=== PATIENT | female | born 1960 | race Caucasian/White ===

== ENCOUNTER → 2021-10-28 12:04 | Outpatient (CLI) | payer OTHER, SELFPAY ==
--- NOTE | 2021-10-28 | DI.MRI.S_ITS ---
PROCEDURE: MR HEAD/BRAIN WO/W CON INDICATIONS: Neoplasm of unspecified behavior of brain TECHNIQUE: Noncontrast axial T1 spin echo, axial T2 fast spin echo, sagittal and axial FLAIR, coronal T2 fast spin echo, axial gradient echo, axial diffusion and ADC through the brain. After the administration of contrast, axial and coronal and sagittal 3D VIBE or T1 spin echo with fat saturation through the brain. COMPARISON: None available. If and when prior exams become available, a comparison report can be submitted as an addendum. FINDINGS: Image quality: Excellent. CSF Spaces: Basal cisterns are patent. No extra-axial fluid collections. Ventricles are normal in size and shape. Brain: In the right frontal lobe, there is a large cystic resection cavity with surrounding gliosis, without significant mass effect or midline shift. The ependymal surface of the right lateral ventricle frontal horn appears intact. No midline shift. Mild underlying atrophy and multifocal white matter chronic ischemic change present. No abnormal intracranial enhancement. The brainstem appears normal. Diffusion-weighted images demonstrate no acute infarct. Normal intravascular flow voids are present. Skull and face: Right frontal craniotomy noted. Orbits appear normal. Sinuses: Sinuses and mastoids appear clear. 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 Approved by: Kayden Reeder M.D. on 10/28/2021 at 12:29
== END ==
PROVIDERS: PCP Physician Assistant Medical; Referring Provider Neurological Surgery; Visit Provider Neurological Surgery
DX: D49.6 Neoplasm of unspecified behavior of brain (principal); G93.89 Other specified disorders of brain; Z98.890 Other specified postprocedural states
CPT/HCPCS: 70553; A9579